=== PATIENT | male | born 1995 | race African-American/Black ===

== ENCOUNTER → 2017-12-31 | Outpatient (CLI) | payer OTHER ==
--- NOTE | 2017-12-31 17:45 | DIAGNOSTIC IMAGING REPORT ---
RIGHT KNEE MRI HISTORY: PATELLAR FRACTURE RT KNEE COMPARISON STUDY: Right knee 12/31/2017. TECHNIQUE: Multiplanar multisequence MRI of the right knee was performed according to standard department protocol without the use of contrast. FINDINGS: Menisci: The medial and lateral menisci are intact. Ligaments: The anterior and posterior cruciate ligaments are intact. The medial and lateral collateral ligaments are normal in appearance. Extensor mechanism: The quadriceps tendon is intact. There is a transverse fracture through the lower pole of the patella. This demonstrates up to 6 mm of distraction. Approximately 10-20% of the patellar ligament fibers extend to the fractured fragment. There is edema throughout the thickened patellar fibers consistent with a tendinopathy. There is edema superficial and deep to the patellar ligament. Articular cartilage and bone: No fractures identified within the visualized femur, tibia, or fibula. Cartilage spaces are maintained. There is a 3.6 x 2.9 cm osteochondroma extending posteriorly from the medial tibia. This demonstrates a thin cartilaginous cap measuring 3 mm. No soft tissue mass identified. Joint effusion: Trace. IMPRESSION: 1. Transverse fractures of the lower pole of the talus demonstrating up to 6 mm of distraction. 2. Patellar tendinopathy. 3. A 3.6 x 2.9 cm osteochondroma extending posteriorly from the medial tibia. Electronically signed by: Law Koo M.D. 12/31/2017 5:44 PM Dictated Date/Time: 12/31/2017 5:34 PM
== END | disposition home or self-care (01) ==
LOC: C.MRIBC 16:32
PROVIDERS: ATTEND Physical Medicine & Rehabilitation
DX: S82.001A Unspecified fracture of right patella, initial encounter for closed fracture (principal); D16.21 Benign neoplasm of long bones of right lower limb; X58.XXXA Exposure to other specified factors, initial encounter

== ENCOUNTER → 2017-12-31 | Outpatient (CLI) | payer OTHER | END | disposition home or self-care (01) | LOC: C.RDSM 17:26 | PROVIDERS: ATTEND Physical Medicine & Rehabilitation | DX: M25.561 Pain in right knee (principal) ==

== ENCOUNTER → 2018-01-20 | Outpatient (CLI) | payer OTHER | END | disposition home or self-care (01) | LOC: C.RDSM 09:40 | PROVIDERS: ATTEND Physical Medicine & Rehabilitation Sports Medicine | DX: Z87.81 Personal history of (healed) traumatic fracture (principal) ==

== ENCOUNTER → 2018-03-08 | Outpatient (CLI) | payer OTHER | END | disposition home or self-care (01) | LOC: C.RDSM 12:25 | PROVIDERS: ATTEND Physical Medicine & Rehabilitation Sports Medicine | DX: S82.001A Unspecified fracture of right patella, initial encounter for closed fracture (principal); X58.XXXA Exposure to other specified factors, initial encounter ==

== ENCOUNTER → 2018-06-02 | Outpatient (CLI) | payer OTHER ==
[~2018-06-02] MED LIST: AMPH25CA PO; LITH150C6 PO
== END | disposition home or self-care (01) ==
LOC: C.RDSM 13:07
PROVIDERS: ATTEND Physical Medicine & Rehabilitation Sports Medicine
DX: M25.561 Pain in right knee (principal)